=== PATIENT | female | born 1990 | race Caucasian/White ===

== ENCOUNTER 2019-04-19 15:31 | Outpatient (CLI) | payer OTHER, SELFPAY ==
[2019-04-19 15:48] VITALS: BP 128/78; PULSE 90
[2019-04-19 16:01] VITALS: BP 127/78; PULSE 87
[2019-04-19 16:15] LABS: Basophils Percent Auto 0.1 % (0.2-1.2); Eosinophils Absolute Auto 0.1 K/mm3 (0-0.3); Eosinophils Percent Auto 0.8 % (0-4.4); Hematocrit 32.4 % (37.0-47.0); Hemoglobin 10.7 g/dL (12.0-15.0); Immature Granulocyte Absolute 0.06 K/mm3 (0.00-0.031); Immature Granulocyte Percent A 0.6 % (0-0.5); Lymphocytes Absolute Auto 1.51 K/mm3 (0.9-3.2); Lymphocytes Percent Auto 15.9 % (18.3-44.2); Mean Corpuscular Volume 90.8 fl (80-100); Mean Platelet Volume 9.8 fl (7.4-10.4); Monocytes Absolute Auto 0.6 K/mm3 (0.1-0.6); Monocytes Percent Auto 6.4 % (2.6-8.5); Neutrophils Absolute Auto 7.2 K/mm3 (1.3-6.7); Neutrophils Percent Auto 76.2 % (45.5-73.1); Platelet Count Result 234 k/mm3 (150-375); Red Blood Count 3.57 M/mm3 (4.2-5.4); Red Cell Distribution Width 13.3 % (11.5-14.5); White Blood Count 9.5 K/mm3 (4.5-10.0)
[2019-04-19 16:16] VITALS: BP 126/79; PULSE 85; RESP 20; TEMP 36.4
[2019-04-19 16:25] LABS: Add Urine Microscopic? YES; Amorphous Sediment Urine Few; Appearance Urine Clear (Clear); Bacteria Urine Trace /hpf; Bilirubin Urine Negative (Negative); Blood Urine Negative (Negative); Color Urine Yellow (Yellow); Glucose Urine UA Negative (Negative); Ketones Urine Negative (Negative); Leukocyte Esterase Ur Trace LEU/UL (Negative); Mucus Urine Rare /lpf; Nitrate Urine Negative (Negative); Protein Urine Negative (Negative); RBC Urine 0-2 /hpf (0-2); Specific Grav Ur 1.015 (1.001-1.035); Squamous Epithelial Cell Urine Many /hpf (Few); Urobilinogen Urine Negative mg/dL (<2.0); WBC Urine 0-3 /hpf
[2019-04-19 16:27] LABS: Alanine Aminotransferase 8 U/L (4-35); Albumin Level 3.8 g/dL (3.5-5.1); Alkaline Phosphatase 99 U/L (38-126); Aspartate Amino Transferase 13 U/L (14-36); Bilirubin,Total 0.2 mg/dL (0.2-1.3); Blood Urea Nitrogen 8 mg/dL (7-17); Carbon Dioxide 20 mmol/L (22-30); Chloride 104 mmol/L (98-107); Estimated Glomerular Filt Rate > 60; Glucose 90 mg/dL (65-105); Sodium 134 mmol/L (137-145); Uric Acid 2.5 mg/dL (2.5-7.5)
[2019-04-19 16:31] VITALS: BP 127/78; PULSE 89
[2019-04-19 16:31] LABS: Creatinine Urine 59.8 mg/dL; Total Protein Urine Random 12 mg/dL
[2019-04-19 16:40] VITALS: BP 127/78; PULSE 88
== END 2019-04-19 16:58 | disposition home or self-care (01) ==
LOC: ANHOBOP 15:34 → ANHOBPP 15:35
PROVIDERS: PCP Internal Medicine; Visit Provider Obstetrics & Gynecology
DX: O13.9 Gestational [pregnancy-induced] hypertension without significant proteinuria, unspecified trimester (principal)
CPT/HCPCS: 36415; 59025; 80053; 81001; 82570; 84156; 84550; 85025

== ENCOUNTER 2019-04-26 08:45 | Observation (INO) | payer OTHER, SELFPAY ==
[2019-04-26] VITALS (25 sets, daily range): BP systolic 129–136; BP diastolic 83–92; PULSE 82–119; RESP 16; TEMP 37–37.3; O2SAT 97–100; BMI 31.8
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
[2019-04-26 13:21] LABS: Add Urine Microscopic? YES; Appearance Urine Clear (Clear); Bacteria Urine 1+ /hpf; Bilirubin Urine Negative (Negative); Blood Urine Negative (Negative); Color Urine Straw (Yellow); Glucose Urine UA Negative (Negative); Ketones Urine Negative (Negative); Leukocyte Esterase Ur 3+ LEU/UL (NEGATIVE); Mucus Urine Rare /lpf; Nitrate Urine Negative (Negative); Protein Urine Negative (Negative); RBC Urine 0-2 /hpf (0-2); Specific Grav Ur 1.008 (1.001-1.035); Squamous Epithelial Cell Urine Many /hpf (Few); Urobilinogen Urine Negative mg/dL (<2.0)
== END 2019-04-26 13:00 | disposition home or self-care (01) ==
PROVIDERS: Admitting Provider Obstetrics & Gynecology; PCP Internal Medicine; Visit Provider Obstetrics & Gynecology
DX: Z04.1 Encounter for examination and observation following transport accident (principal); O60.03 Preterm labor without delivery, third trimester; Z3A.31 31 weeks gestation of pregnancy
CPT/HCPCS: 76815; 76819; 81001; G0378; G0379

== ENCOUNTER 2019-05-28 13:50 | Outpatient (CLI) | payer OTHER, SELFPAY ==
[2019-05-28] VITALS (7 sets, daily range): BP systolic 128–134; BP diastolic 82–91; PULSE 70–78
[2019-05-28 14:53] LABS: Basophils Percent Auto 0.2 % (0.2-1.2); Eosinophils Percent Auto 0.3 % (0-4.4); Hematocrit 31.9 % (37.0-47.0); Hemoglobin 10.3 g/dL (12.0-15.0); Immature Granulocyte Absolute 0.05 K/mm3 (0.00-0.031); Immature Granulocyte Percent A 0.6 % (0-0.5); Lymphocytes Absolute Auto 1.35 K/mm3 (0.9-3.2); Lymphocytes Percent Auto 15.4 % (18.3-44.2); Mean Corpuscular HGB Conc 32.3 g/dl (32-36); Mean Corpuscular Hemoglobin 29.1 pg (26-34); Mean Corpuscular Volume 90.1 fl (80-100); Mean Platelet Volume 10.5 fl (7.4-10.4); Monocytes Absolute Auto 0.6 K/mm3 (0.1-0.6); Monocytes Percent Auto 6.5 % (2.6-8.5); Neutrophils Absolute Auto 6.8 K/mm3 (1.3-6.7); Platelet Count Result 212 k/mm3 (150-375); Red Blood Count 3.54 M/mm3 (4.2-5.4); Red Cell Distribution Width 13.4 % (11.5-14.5); White Blood Count 8.8 K/mm3 (4.5-10.0)
[2019-05-28 15:05] LABS: Alanine Aminotransferase 8 U/L (4-35); Albumin Level 3.5 g/dL (3.5-5.1); Alkaline Phosphatase 129 U/L (38-126); Aspartate Amino Transferase 14 U/L (14-36); Bilirubin,Total 0.2 mg/dL (0.2-1.3); Blood Urea Nitrogen 8 mg/dL (7-17); Calcium 8.7 mg/dL (8.4-10.2); Carbon Dioxide 19 mmol/L (22-30); Chloride 109 mmol/L (98-107); Creatinine Urine 66.7 mg/dL; Estimated Glomerular Filt Rate > 60; Glucose 78 mg/dL (65-105); Potassium 4.3 mmol/L (3.4-5.0); Sodium 135 mmol/L (137-145); Total Protein Urine Random 16 mg/dL; Uric Acid 3.5 mg/dL (2.5-7.5)
--- NOTE | 2019-05-28 15:06 | PC.NURSE ---
1350-Pt sent over from 's for elevated bp. [facility] orders received.
[2019-05-28 15:07] LABS: Add Urine Microscopic? YES; Appearance Urine Clear (Clear); Bilirubin Urine Negative (Negative); Blood Urine Negative (Negative); Color Urine Straw (Yellow); Glucose Urine UA Negative (Negative); Ketones Urine Negative (Negative); Leukocyte Esterase Ur Trace LEU/UL (NEGATIVE); Mucus Urine Rare /lpf; Nitrate Urine Negative (Negative); Protein Urine Negative (Negative); Specific Grav Ur 1.014 (1.001-1.035); Squamous Epithelial Cell Urine Moderate /hpf (Few); Urobilinogen Urine Negative mg/dL (<2.0); WBC Urine 0-3 /hpf (0-3)
== END 2019-05-28 15:28 ==
LOC: ANHOBPP 14:25 → ANHOBOP 05-29 08:33 → ANHOBPP 12-27 07:35
PROVIDERS: PCP Internal Medicine; Visit Provider Obstetrics & Gynecology
DX: Z34.90 Encounter for supervision of normal pregnancy, unspecified, unspecified trimester (principal); Z3A.00 Weeks of gestation of pregnancy not specified
CPT/HCPCS: 36415; 59025; 80053; 81001; 82570; 84156; 84550; 85025; 87086

== ENCOUNTER 2019-06-04 15:21 | Outpatient (CLI) | payer OTHER, SELFPAY ==
[2019-06-04 15:45] VITALS: BP 138/97; PULSE 89
[2019-06-04 15:54] VITALS: PULSE 87
[2019-06-04 15:58] LABS: Basophils Percent Auto 0.1 % (0.2-1.2); Eosinophils Percent Auto 0.2 % (0-4.4); Hemoglobin 11.1 g/dL (12.0-15.0); Immature Granulocyte Absolute 0.06 K/mm3 (0.00-0.031); Immature Granulocyte Percent A 0.7 % (0-0.5); Lymphocytes Absolute Auto 1.37 K/mm3 (0.9-3.2); Lymphocytes Percent Auto 14.9 % (18.3-44.2); Mean Corpuscular HGB Conc 33.6 g/dl (32-36); Mean Corpuscular Hemoglobin 29.4 pg (26-34); Mean Corpuscular Volume 87.5 fl (80-100); Mean Platelet Volume 10.3 fl (7.4-10.4); Monocytes Absolute Auto 0.6 K/mm3 (0.1-0.6); Monocytes Percent Auto 6.5 % (2.6-8.5); Neutrophils Absolute Auto 7.1 K/mm3 (1.3-6.7); Neutrophils Percent Auto 77.6 % (45.5-73.1); Platelet Count Result 237 k/mm3 (150-375); Red Blood Count 3.77 M/mm3 (4.2-5.4); Red Cell Distribution Width 13.3 % (11.5-14.5); White Blood Count 9.2 K/mm3 (4.5-10.0)
[2019-06-04 16:00] VITALS: BP 135/97; PULSE 87
--- NOTE | 2019-06-04 16:05 | PC.NURSE ---
Dr. Lee called. Stated that he saw lab results and BPs. July D/C home with 24hr urine.
[2019-06-04 16:06] LABS: Alanine Aminotransferase 9 U/L (4-35); Albumin Level 3.7 g/dL (3.5-5.1); Alkaline Phosphatase 141 U/L (38-126); Aspartate Amino Transferase 14 U/L (14-36); Bilirubin,Total 0.4 mg/dL (0.2-1.3); Blood Urea Nitrogen 8 mg/dL (7-17); Calcium 9.3 mg/dL (8.4-10.2); Carbon Dioxide 23 mmol/L (22-30); Chloride 104 mmol/L (98-107); Estimated Glomerular Filt Rate > 60; Glucose 91 mg/dL (65-105); Potassium 4.3 mmol/L (3.4-5.0); Sodium 134 mmol/L (137-145); Uric Acid 3.9 mg/dL (2.5-7.5)
== END 2019-06-04 16:18 | disposition home or self-care (01) ==
LOC: ANHOBOP 15:36 → ANHOBPP 16:08
PROVIDERS: PCP Internal Medicine; Visit Provider Student in an Organized Health Care Education/Training Program
DX: O13.9 Gestational [pregnancy-induced] hypertension without significant proteinuria, unspecified trimester (principal); Z3A.00 Weeks of gestation of pregnancy not specified
CPT/HCPCS: 36415; 59025; 80053; 84550; 85025

== ENCOUNTER 2019-06-12 05:55 | Inpatient (IN) | payer OTHER, SELFPAY ==
[2019-06-02 12:30] VITALS: BMI 33.5
[2019-06-12] VITALS (149 sets, daily range): BP systolic 114–158; BP diastolic 68–107; PULSE 72–119; RESP 22; TEMP 36.4–37.1; O2SAT 97–100; BMI 34.0
--- NOTE | 2019-06-12 06:00 | LDADM ---
This patient, Yanick Dowling, was admitted to Labor/Delivery/Recovery 107 on 06/12/19 at 05:55. Plans for labor, pain management and were discussed with patient. Patient/family oriented to hospital policies and general routines including ID bracelet, bed and alarms, visiting hours, pain management, procedures, bathroom and other care routines, personal items, smoking policy, room service/diet and guest tray routines, security routines, and visiting hours. Patient/Family are encouraged to report perceived risks to care and to ask questions if they do not understand what they are told or what they should do. See OBIX for further documentation.
[2019-06-12 06:44] LABS: Basophils Percent Auto 0.2 % (0.2-1.2); Eosinophils Absolute Auto 0.1 K/mm3 (0-0.3); Eosinophils Percent Auto 0.6 % (0-4.4); Hematocrit 32.2 % (37.0-47.0); Hemoglobin 10.8 g/dL (12.0-15.0); Immature Granulocyte Absolute 0.08 K/mm3 (0.00-0.031); Immature Granulocyte Percent A 0.7 % (0-0.5); Lymphocytes Absolute Auto 1.45 K/mm3 (0.9-3.2); Lymphocytes Percent Auto 13.4 % (18.3-44.2); Mean Corpuscular HGB Conc 33.5 g/dl (32-36); Mean Corpuscular Hemoglobin 29.3 pg (26-34); Mean Corpuscular Volume 87.5 fl (80-100); Mean Platelet Volume 10.1 fl (7.4-10.4); Monocytes Absolute Auto 0.5 K/mm3 (0.1-0.6); Monocytes Percent Auto 4.4 % (2.6-8.5); Neutrophils Absolute Auto 8.7 K/mm3 (1.3-6.7); Neutrophils Percent Auto 80.7 % (45.5-73.1); Platelet Count Result 244 k/mm3 (150-375); Red Blood Count 3.68 M/mm3 (4.2-5.4); Red Cell Distribution Width 13.5 % (11.5-14.5); White Blood Count 10.8 K/mm3 (4.5-10.0)
[2019-06-12] MEDS: LACTATED RINGERS 1,000 ML 125 ML IV CONT ×3 (06:46→17:41)
[2019-06-12] MEDS: OXYTOCIN 30 UNITS/NS 500 ML 30 UNITS/500 ML BAG 6 UNITS IV CONT ×2 (06:46→18:27)
[2019-06-12 07:00] LABS: Alanine Aminotransferase 8 U/L (4-35); Albumin Level 3.5 g/dL (3.5-5.1); Alkaline Phosphatase 126 U/L (38-126); Aspartate Amino Transferase 15 U/L (14-36); Bilirubin,Total < 0.1 mg/dL (0.2-1.3); Blood Urea Nitrogen 9 mg/dL (7-17); Calcium 9.1 mg/dL (8.4-10.2); Carbon Dioxide 21 mmol/L (22-30); Chloride 106 mmol/L (98-107); Estimated CRCL calculation 145 ml/min; Estimated Glomerular Filt Rate > 60; Glucose 107 mg/dL (65-105); Potassium 3.9 mmol/L (3.4-5.0); Sodium 133 mmol/L (137-145); Uric Acid 4.4 mg/dL (2.5-7.5)
--- NOTE | 2019-06-12 08:30 | WPDOBADMIT ---
Obstetrics - Admit Note Admission Note: 28 y/o G1 at 38 3/7 weeks with likely CHTN, now with superimposed gestational HTN. No headaches, no epigastric pain, minimal edema, normal labs. No evidence of superimposed preeclampsia. Here for induction of labor. GBS neg. AVSS NST reactive TOCO: contractions every 2-4 min ABD soft, nontender, gravid, vertex EXT nontender Cervix 3-4/80/-2. AROM with clear fluid. A: IUP at 38 3/7 weeks with gestational HTN. P: I have offered induction of labor. Reviewed risks, benefits, alternatives in detail, and she would like to go ahead with IOL. Oxytocin per protocol.
--- NOTE | 2019-06-12 10:55 | WPDANESEPP ---
Anes - Eval Pre Procedure Procedure: labor epidural Date/Time: 06/12/19 13:10 Surgeon: Naomy Preop Diagnosis: Labor Pain Pre Op Diagnosis: Induction of labor Patient Data Age: 28 Gender: F Height: 5 ft 3 in Weight: 87 kg Last Vital Signs Temp 36.6 C 06/12/19 12:00 Pulse 83 06/12/19 13:01 BP 132/87 06/12/19 13:01 Pulse Ox 100 06/12/19 13:07 Allergies Allergy/AdvReac Type Severity Reaction Status Date / Time Cephalosporins Allergy Mild Other Verified 04/26/19 09:06 cefprozil Allergy Unknown Other Verified 04/26/19 09:06 Home Medications Medication Instructions Recorded Confirmed Type PNV cmb#95-ferrous fumarate-FA 1 tablet PO DAILY 04/26/19 06/12/19 History [] Laboratory Tests 06/12/19 06/12/19 06/12/19 06:32 06:32 06:32 WBC 10.8 K/mm3 H K/mm3 (4.5-10.0) RBC 3.68 M/mm3 L M/mm3 (4.2-5.4) Hgb 10.8 g/dL L g/dL (12.0-15.0) Hct 32.2 % L % (37.0-47.0) MCV 87.5 fl fl (80-100) MCH 29.3 pg pg (26-34) MCHC 33.5 g/dl g/dl (32-36) RDW 13.5 % % (11.5-14.5) Plt Count 244 k/mm3 k/mm3 (150-375) MPV 10.1 fl fl (7.4-10.4) Immature Gran % (Auto) 0.7 % H % (0-0.5) Neut % (Auto) 80.7 % H % (45.5-73.1) Lymph % (Auto) 13.4 % L % (18.3-44.2) Saline % (Auto) 4.4 % % (2.6-8.5) Eos % (Auto) 0.6 % % (0-4.4) Baso % (Auto) 0.2 % % (0.2-1.2) Lymph # (Auto) 1.45 K/mm3 K/mm3 (0.9-3.2) Saline # (Auto) 0.5 K/mm3 K/mm3 (0.1-0.6) Eos # (Auto) 0.1 K/mm3 K/mm3 (0-0.3) Baso # (Auto) 0.0 K/mm3 K/mm3 (0.0-0.1) Abs Immat Gran (auto) 0.08 K/mm3 H K/mm3 (0.00-0.031) Absolute Neuts (auto) 8.7 K/mm3 H K/mm3 (1.3-6.7) Absolute Nucleated RBC 0.0 K/mm3 K/mm3 (0.0-0.012) Nucleated RBC % 0.0 % % (0.0-0.2) Sodium Potassium Chloride Carbon Dioxide BUN Creatinine Estim Creat Clear Calc Estimated GFR Glucose Uric Acid 4.4 mg/dL mg/dL (2.5-7.5) Calcium Total Bilirubin AST ALT Alkaline Phosphatase Total Protein Albumin RPR Pending Blood Type Antibody Screen 06/12/19 06/12/19 06:32 06:32 WBC RBC Hgb Hct MCV MCH MCHC RDW Plt Count MPV Immature Gran % (Auto) Neut % (Auto) Lymph % (Auto) Saline % (Auto) Eos % (Auto) Baso % (Auto) Lymph # (Auto) Saline # (Auto) Eos # (Auto) Baso # (Auto) Abs Immat Gran (auto) Absolute Neuts (auto) Absolute Nucleated RBC Nucleated RBC % Sodium 133 mmol/L L mmol/L (137-145) Potassium 3.9 mmol/L mmol/L (3.4-5.0) Chloride 106 mmol/L mmol/L (98-107) Carbon Dioxide 21 mmol/L L mmol/L (22-30) BUN 9 mg/dL mg/dL (7-17) Creatinine 0.50 mg/dL L mg/dL (0.7-1.0) Estim Creat Clear Calc 145 ml/min ml/min Estimated GFR > 60 (59 - ) Glucose 107 mg/dL H mg/dL (65-105) Uric Acid Calcium 9.1 mg/dL mg/dL (8.4-10.2) Total Bilirubin < 0.1 mg/dL L mg/dL (0.2-1.3) AST 15 U/L U/L (14-36) ALT 8 U/L U/L (4-35) Alkaline Phosphatase 126 U/L U/L (38-126) Total Protein 7.0 g/dL g/dL (6.3-8.2) Albumin 3.5 g/dL g/dL (3.5-5.1) RPR Blood Type B Positive Antibody Screen Negative : gestational age (CARISSA 06/23/19, ) Patient hx anesthesia problems: none Family hx anesthesia problems: none [facility]
--- NOTE | 2019-06-12 11:28 | PM.OBPNLAB ---
Pain Control Date/time seen: 06/12/19 11:28 Comments: Epidural in place. Pain significantly decreased. Pelvic Exam Comments: AVSS 4-5/80/-1. IUPC placed. NST reactive TOCO: contractions every 2-4 min Assessment and Plan Comments: Continue labor.
[2019-06-12 16:06] LABS: Rapid Plasma Reagin Non-Reactive (NonReactive)
--- NOTE | 2019-06-12 18:08 | PM.OBPRVD ---
OB - Delivery Note Procedure Delivery date: 06/12/19 Procedure: Induction of labor with Induction method: AROM and per pitocin protocol Delivery monitor: external FHT, external uterine and internal uterine Route of delivery: Delivery repair: vicryl (3-0 Vicryl) Estimated blood loss (mL): 95 Anesthesia type: Epidural Disposition: PACU Complications: None Narrative: 28 y/o G1 at 38 3/7 weeks gestation who presented to the hospital for induction of labor. Oxytocin was administered intravenously. Amniotomy was performed with return of clear fluid. She received an epidural for pain control. Her labor progressed and her cervix dilated completely. She pushed with good effort. The 's head rotated from ROP to CHARO and delivered to the perineum. A loose nuchal cord was splinted. The body delivered. The cord was reduced. The nose and mouth were bulb suctioned. After a delay, the cord was clamped and cut. The infant was handed off the field. Cord blood was collected. The placenta delivered spontaneously and was grossly normal in appearance. The usual 3 vessel cord was noted. A distal vaginal laceration was sustained. This was reapproximated using 3 0 Vicryl in the usual layered fashion. A right labial laceration was reapproximated using figure of eight sutures of the same material. Excellent hemostasis resulted as did excellent reapproximation of the normal anatomy. Needle and instrument counts were correct. The patient was taken to recovery room in stable condition. The went to the nursery in stable condition. I was present and scrubbed for the entire delivery. [place] Baby Date of : 06/12/19 Time of : 17:50 Weeks of gestation at delivery: 38 Infant gender: Female Weight (pounds): 6 Weight (ounces): 14 presentation: vertex position: Right Occiput Anterior Placenta delivery description: Spontaneous and Normal Configuration cord vessel description: 3 Vessels and Nuchal Cord score one minute: 9 score five minutes: 9
--- NOTE | 2019-06-12 18:12 | PM.OBDSVD ---
DS: Diagnosis Admitting Diagnosis Admitting Diagnosis: IUP at 38 3/7 weeks Gestational hypertension Discharge Diagnosis (1) Gestational hypertension: Code(s): O13.9 - Gestational [-induced] hypertension without significant proteinuria, unspecified trimester Status: Acute OB - DS: Summary OB Procedures : None OB Procedures Intrapartum: Spontaneous Vag Delivery OB Procedures: : None Time Spent with Patient Time attestation: Total time spent providing and/or coordinating discharge services: DS: Data Data Completed and Pending Labs on day of discharge: Labs from last 24 hours 06/12/19 06/12/19 06/12/19 06:32 06:32 06:32 WBC RBC Hgb Hct MCV MCH MCHC RDW Plt Count MPV Immature Gran % (Auto) Neut % (Auto) Lymph % (Auto) [place] % (Auto) Eos % (Auto) Baso % (Auto) Lymph # (Auto) [place] # (Auto) Eos # (Auto) Baso # (Auto) Abs Immat Gran (auto) Absolute Neuts (auto) Absolute Nucleated RBC Nucleated RBC % Sodium 133 L Potassium 3.9 Chloride 106 Carbon Dioxide 21 L BUN 9 Creatinine 0.50 L Estim Creat Clear Calc 145 Estimated GFR > 60 Glucose 107 H Uric Acid Calcium 9.1 Total Bilirubin < 0.1 L AST 15 ALT 8 Alkaline Phosphatase 126 Total Protein 7.0 Albumin 3.5 RPR Non-reactive Blood Type B Positive Antibody Screen Negative 06/12/19 06/12/19 06:32 06:32 WBC 10.8 H RBC 3.68 L Hgb 10.8 L Hct 32.2 L MCV 87.5 MCH 29.3 MCHC 33.5 RDW 13.5 Plt Count 244 MPV 10.1 Immature Gran % (Auto) 0.7 H Neut % (Auto) 80.7 H Lymph % (Auto) 13.4 L [place] % (Auto) 4.4 Eos % (Auto) 0.6 Baso % (Auto) 0.2 Lymph # (Auto) 1.45 [place] # (Auto) 0.5 Eos # (Auto) 0.1 Baso # (Auto) 0.0 Abs Immat Gran (auto) 0.08 H Absolute Neuts (auto) 8.7 H Absolute Nucleated RBC 0.0 Nucleated RBC % 0.0 Sodium Potassium Chloride Carbon Dioxide BUN Creatinine Estim Creat Clear Calc Estimated GFR Glucose Uric Acid 4.4 Calcium Total Bilirubin AST ALT Alkaline Phosphatase Total Protein Albumin RPR Blood Type Antibody Screen Discharge Plan Discharge Attending physician on discharge: Atif Moralez Discharging Clinician: Atif Moralez Patient Disposition: Home, Self-Care Activity: pelvic rest Diet: regular Discharge Instructions: Call or return if temperature above 100.4? F, increased abdominal pain, increased vaginal bleeding or any new problems. Stand Alone Forms: General Discharge Information Follow-up/Referrals: Atif Moralez MD [Physician] - (6 weeks) Discharge Medications: New ibuprofen 600 mg tablet 600 mg PO Q6H PRN (Reason: cramps) Qty: 30 RF: 0 No Action PNV cmb#95-ferrous fumarate-FA [] 28 mg iron- 800 mcg Tablet 1 tablet PO DAILY RF: 0 Date of admission: 06/12/19 05:55 Primary Care Provider: Lanette,Conner Worley Admitting Provider: Atif Moralez Attending physician on admission: Atif Moralez
[2019-06-13] MEDS: IBUPROFEN 600 MG TABLET PO ×3 (05:24→18:57)
[2019-06-13 05:27] LABS: Hemoglobin 9.4 g/dL (12.0-15.0)
[2019-06-13 07:45] VITALS: BP 128/88; PULSE 79; RESP 16; TEMP 37.1; O2SAT 98
[2019-06-13] MEDS: POLYSACCHARIDE IRON COMPLEX 150 MG CAPSULE PO ×2 (10:05→18:56)
[2019-06-13] MEDS: MULTIVIT/MIN/PREN/FOL AC/IRON TABLET 1 TAB PO (10:05)
[2019-06-13] MEDS: DOCUSATE SODIUM 100 MG CAPSULE PO ×2 (10:05→18:56)
[2019-06-13] MEDS: LANOLIN (LANSINOH) 7.5 GM CREAM 1 APPLIC TOPICAL (10:06)
--- NOTE | 2019-06-13 11:47 | PM.OBPNVD ---
OB - PN: Subj Subjective Date/time seen: 06/13/19 11:47 Narrative: Pain OK. Thinks she might want to go home today. OB - PN: Obj Data Labs CBC & Chem 7: 06/13/19 04:02 06/12/19 06:32 Labs: Laboratory Results - last 24 hr 06/12/19 06/13/19 06:32 04:02 Hgb 9.4 L Hct 29.0 L RPR Non-reactive OB - PN A/P Plan Comments: A: PPD#1, doing well. P: Routine care. Home to f/u 6 weeks. BP check in 1-2 days on L&D. Exam Psych: Other: AVSS ABD soft, nontender, fundus firm EXT nontender
--- NOTE | 2019-06-13 14:15 | PC.NURSE ---
Consulted with patient, mother reports pain with feeding. Both nipples are reddened from incorrect latch. Nipple care reviewed. Reviewed feeding cues, frequencies, duration of feedings, feeding elimination flow sheet, and signs of adequate intake. Demonstrated stimulation techniques to wake infant for feeding. Assisted with to breast. Reviewed positioning/alignment in cross cradle, holding breast in U hold and guided asymmetrical latch on. Infant was able to latch correctly. Mother quickly reports she can feel infant is latched more deeply than previous feedings. nursed eagerly, with steady draws and frequent swallowing noted. Reviewed signs of a correct latch, effective nursing and suck swallow ratio. Infant was able to maintain latch without discomfort to mother. Suggested mother stimulate infant to keep awake and nursing effectively for increased intake and assist with maintaining deep latch. Demonstrated how to adjust latch more deeply while feeding. Instructed mother to call out for RN assistance if she is unable to latch infant for feeding or she has discomfort with nursing. Instructed feeding should be initiated three hours from start of last feeding or if feeding cues are noted before. Mother voiced understanding of information shared.
[2019-06-13] MEDS: BENZOCAINE 20% AER SPR (*SP) 56 GM CAN 1 SPRAY TOPICAL (18:56)
[2019-06-13] MEDS: WITCH HAZEL 40 PADS 1 PAD TOPICAL (18:56)
--- NOTE | 2019-06-13 19:40 | PC.NURSE ---
1914 Parents have decided to stay in hospital and not be discharged home tonight for continue breast feeding support and evaluation of baby for possible tongue tie. Discharge cancelled.
[2019-06-13 21:25] VITALS: BP 140/93; PULSE 72; RESP 14; TEMP 36.7; O2SAT 98
[2019-06-14] MEDS: IBUPROFEN 600 MG TABLET PO ×2 (05:11→11:22)
[2019-06-14 07:40] VITALS: BP 140/93; PULSE 67; RESP 18; TEMP 37.3; O2SAT 98
[2019-06-14] MEDS: POLYSACCHARIDE IRON COMPLEX 150 MG CAPSULE PO (09:01)
[2019-06-14] MEDS: DOCUSATE SODIUM 100 MG CAPSULE PO (09:01)
[2019-06-14] MEDS: MULTIVIT/MIN/PREN/FOL AC/IRON TABLET 1 TAB PO (09:01)
--- NOTE | 2019-06-14 12:39 | PM.OBPNVD ---
OB - PN: Subj Subjective Date/time seen: 06/14/19 12:39 Narrative: Pain OK. Wound up staying overnight last night. Ready to go home. OB - PN: Obj Data Labs CBC & Chem 7: 06/13/19 04:02 06/12/19 06:32 OB - PN A/P Plan Comments: A: PPD#2, doing well. P: Home to f/u 6 weeks. Exam Psych: Other: AVSS ABD soft, nontender, fundus firm EXT nontender
[2019-06-15 08:23] VITALS: BP 138/91; PULSE 73; RESP 20; TEMP 36.5
== END 2019-06-14 14:31 | disposition home or self-care (01) | DRG 807 ==
LOC: ANHLDR 18:14 → ANHOB2 20:59
PROVIDERS: Admitting Provider Obstetrics & Gynecology; PCP Internal Medicine; Visit Provider Obstetrics & Gynecology
DX: O13.4 Gestational [pregnancy-induced] hypertension without significant proteinuria, complicating childbirth (principal); Z37.0 Single live birth; Z3A.38 38 weeks gestation of pregnancy; O69.81X0 Labor and delivery complicated by cord around neck, without compression, not applicable or unspecified
CPT/HCPCS: 36415; 80053; 84550; 85014; 85018; 85025; 86592; 86850; 86900; 86901; 88307; A9270; J2590; J2795; J7120

== ENCOUNTER 2021-07-07 09:06 | Outpatient (CLI) | payer OTHER, SELFPAY ==
[2021-07-07 09:33] LABS: Collection Time Urine 24 HOURS
[2021-07-07 09:45] LABS: Patient Weight 160 Lbs
[2021-07-07 11:19] LABS: Total Volume 24 Hour Urine 1300 ml
[2021-07-07 11:25] LABS: Creatinine Urine 94.4 mg/dL; Total Protein Urine 24 Hr 182 mg/24hr (28-141); Total Protein Urine Random 14 mg/dL
== END 2021-07-07 09:07 | disposition home or self-care (01) ==
PROVIDERS: PCP Internal Medicine; Visit Provider Obstetrics & Gynecology
DX: O16.3 Unspecified maternal hypertension, third trimester (principal); Z3A.00 Weeks of gestation of pregnancy not specified
CPT/HCPCS: 81050; 82570; 82575; 84156

== ENCOUNTER 2021-12-31 14:39 | Outpatient (RCR) | payer OTHER, SELFPAY ==
[2021-12-03 11:40] VITALS: BP 113/72; PULSE 88
[2021-12-17 14:31] VITALS: BP 125/81; PULSE 76
[2021-12-24 10:05] LABS: Basophils Percent Auto 0.2 % (0.2-1.2); Eosinophils Percent Auto 0.7 % (0-4.4); Hematocrit 34.7 % (37.0-47.0); Hemoglobin 11.6 g/dL (12.0-15.0); Immature Granulocyte Absolute 0.02 K/mm3 (0.00-0.031); Immature Granulocyte Percent A 0.3 % (0-0.5); Lymphocytes Absolute Auto 1.32 K/mm3 (0.9-3.2); Lymphocytes Percent Auto 22.1 % (18.3-44.2); Mean Corpuscular HGB Conc 33.4 g/dl (32-36); Mean Corpuscular Hemoglobin 30.4 pg (26-34); Mean Corpuscular Volume 91.1 fl (80-100); Monocytes Absolute Auto 0.4 K/mm3 (0.1-0.6); Monocytes Percent Auto 5.9 % (2.6-8.5); Neutrophils Absolute Auto 4.2 K/mm3 (1.3-6.7); Neutrophils Percent Auto 70.8 % (45.5-73.1); Platelet Count Result 188 k/mm3 (150-375); Red Blood Count 3.81 M/mm3 (4.2-5.4); Red Cell Distribution Width 14.2 % (11.5-14.5)
[2021-12-24 10:26] LABS: Appearance Urine Slightly Cloudy (Clear); Bilirubin Urine Negative (Negative); Blood Urine Trace-intact (Negative); Color Urine Yellow (Yellow); Glucose Urine UA Negative (Negative); Ketones Urine Negative (Negative); Leukocyte Esterase Ur Trace LEU/UL (NEGATIVE); Nitrate Urine Negative (Negative); Protein Urine Negative (Negative); Specific Grav Ur 1.015 (1.001-1.035); Urobilinogen Urine 0.2 mg/dL (<2.0)
[2021-12-24 10:29] LABS: Alanine Aminotransferase 13 U/L (6-35); Alkaline Phosphatase 113 U/L (38-126); Anion Gap 10 mmol/L (8-16); Aspartate Amino Transferase 19 U/L (14-36); Bilirubin,Total 0.3 mg/dL (0.2-1.3); Blood Urea Nitrogen 6 mg/dL (7-17); Calcium 8.8 mg/dL (8.4-10.2); Carbon Dioxide 21 mmol/L (22-30); Chloride 105 mmol/L (98-107); Estimated Glomerular Filt Rate > 60; Glucose 84 mg/dL (65-110); Sodium 136 mmol/L (137-145); Uric Acid 4.1 mg/dL (2.5-7.5)
[2021-12-24 10:38] LABS: Bacteria Urine Trace /hpf; Mucus Urine Rare /lpf; RBC Urine 0-2 /hpf (0-2); Squamous Epithelial Cell Urine Moderate /hpf (Few); WBC Urine 0-3 /hpf (0-3)
[2021-12-24 10:40] LABS: Add Urine Microscopic? YES
[2021-12-24 11:00] LABS: Creatinine Urine 59.8 mg/dL; Total Protein Urine Random 10 mg/dL; Ur Ttl Prot Creatinine Ratio 0.17 mg/mg (0-0.20)
[2021-12-24 11:22] VITALS: BP 127/85; PULSE 77
[2021-12-31 15:30] VITALS: BP 132/86; PULSE 79
== END 2022-02-19 07:37 | disposition home or self-care (01) ==
LOC: ANHOBOP 14:39
PROVIDERS: PCP Internal Medicine; Visit Provider Obstetrics & Gynecology
DX: O16.3 Unspecified maternal hypertension, third trimester (principal); Z3A.33 33 weeks gestation of pregnancy; Z3A.34 34 weeks gestation of pregnancy; Z3A.35 35 weeks gestation of pregnancy; Z3A.36 36 weeks gestation of pregnancy; Z3A.37 37 weeks gestation of pregnancy
CPT/HCPCS: 36415; 59025; 80053; 81001; 82570; 84156; 84550; 85025; 87086

== ENCOUNTER 2022-01-05 04:53 | Inpatient (IN) | payer OTHER, SELFPAY ==
[2022-01-05] VITALS (105 sets, daily range): BP systolic 94–163; BP diastolic 56–99; PULSE 61–113; RESP 16–18; TEMP 36.2–37.2; O2SAT 85–100; BMI 33.5
--- NOTE | 2022-01-05 05:33 | LDADM ---
This patient, Yanick Dowling, was admitted to Labor/Delivery/Recovery 103 on 01/05/22 at 04:53. Plans for labor, pain management and were discussed with patient. Patient/family oriented to hospital policies and general routines including ID bracelet, bed and alarms, visiting hours, pain management, procedures, bathroom and other care routines, personal items, smoking policy, room service/diet and guest tray routines, security routines, and visiting hours. Patient/Family are encouraged to report perceived risks to care and to ask questions if they do not understand what they are told or what they should do. See OBIX for further documentation.
[2022-01-05 05:47] LABS: Basophils Percent Auto 0.3 % (0.2-1.2); Eosinophils Absolute Auto 0.1 K/mm3 (0-0.3); Eosinophils Percent Auto 1.4 % (0-4.4); Hematocrit 35.2 % (37.0-47.0); Hemoglobin 11.9 g/dL (12.0-15.0); Immature Granulocyte Absolute 0.06 K/mm3 (0.00-0.031); Lymphocytes Absolute Auto 1.31 K/mm3 (0.9-3.2); Lymphocytes Percent Auto 22.6 % (18.3-44.2); Mean Corpuscular HGB Conc 33.8 g/dl (32-36); Mean Corpuscular Volume 91.7 fl (80-100); Mean Platelet Volume 10.1 fl (7.4-10.4); Monocytes Absolute Auto 0.5 K/mm3 (0.1-0.6); Monocytes Percent Auto 8.1 % (2.6-8.5); Neutrophils Absolute Auto 3.9 K/mm3 (1.3-6.7); Neutrophils Percent Auto 66.6 % (45.5-73.1); Platelet Count Result 196 k/mm3 (150-375); Red Blood Count 3.84 M/mm3 (4.2-5.4); Red Cell Distribution Width 13.7 % (11.5-14.5); White Blood Count 5.8 K/mm3 (4.5-10.0)
[2022-01-05 06:04] LABS: Alanine Aminotransferase 14 U/L (6-35); Albumin Level 3.8 g/dL (3.5-5.1); Alkaline Phosphatase 136 U/L (38-126); Anion Gap 8 mmol/L (8-16); Aspartate Amino Transferase 19 U/L (14-36); Bilirubin,Total 0.2 mg/dL (0.2-1.3); Blood Urea Nitrogen 9 mg/dL (7-17); Calcium 8.6 mg/dL (8.4-10.2); Carbon Dioxide 19 mmol/L (22-30); Chloride 107 mmol/L (98-107); Estimated CRCL calculation 141 ml/min; Estimated Glomerular Filt Rate > 60; Glucose 83 mg/dL (65-110); Sodium 134 mmol/L (137-145)
[2022-01-05 06:05] LABS: Uric Acid 3.7 mg/dL (2.5-7.5)
[2022-01-05] MEDS: OXYTOCIN 30 UNITS/NS 500 ML 30 UNITS/500 ML BAG IV CONT (06:24)
[2022-01-05] MEDS: LACTATED RINGERS 1,000 ML 125 ML IV CONT ×2 (06:24→09:45)
--- NOTE | 2022-01-05 08:51 | WPDOBADMIT ---
Obstetrics - Admit Note Admission Note: record reviewed. Additions to the history and/or subsequent changes in the physical findings follow. 31 y/o at 38 3/7 weeks with CHTN, worsening bp control, on Procardia XL 30 mg daily. GBS neg. Here for scheduled induction of labor. No headache. No midepigastric or RUQ pain. No visual field change. Feeling some contractions. AVSS NST reactive TOCO: contractions every 2-4 min ABD soft, nontender, gravid, vertex EXT nontender Cervix 2-3/80/-2. AROM with clear fluid. Vertex A: IUP at term with favorable cervix, CHTN with worsening bp control. Labs OK. Asymptomatic. No evidence of preeclampsia yet. P: Oxytocin. Anticipate .
[2022-01-05 08:57] LABS: Rapid Plasma Reagin Non-Reactive (NonReactive)
--- NOTE | 2022-01-05 09:37 | WPDANESEPP ---
Anes - Eval Pre Procedure Procedure: labor pain management Date/Time: 01/05/22 09:37 Surgeon: Naomy Preop Diagnosis: pain during labor Pre Op Diagnosis: IOL Patient Data Age: 31 Gender: F Height: 1.6 m Weight: 86 kg Last Vital Signs Temp 97.6 F 01/05/22 09:00 Pulse 88 01/05/22 09:31 BP 134/97 H 01/05/22 09:31 Pulse Ox 100 01/05/22 09:36 O2 Del Method Room Air 01/05/22 05:33 Allergies Allergy/AdvReac Type Severity Reaction Status Date / Time Cephalosporins Allergy Mild Other Verified 04/26/19 09:06 cefprozil Allergy Unknown Other Verified 04/26/19 09:06 nickel Allergy Rash Verified 12/17/21 14:25 Home Medications Medication Instructions Recorded Confirmed Type vit no.95-ferrous 1 tablet PO DAILY 04/26/19 01/05/22 History fumarate 28 mg-folic acid 800 mcg tablet () nifedipine 30 mg tablet,extended 30 mg PO DAILY 12/03/21 12/17/21 History release 24 hr (Procardia XL) Laboratory Tests 01/05/22 01/05/22 01/05/22 05:28 05:28 05:28 WBC 5.8 K/mm3 K/mm3 (4.5-10.0) RBC 3.84 M/mm3 L M/mm3 (4.2-5.4) Hgb 11.9 g/dL L g/dL (12.0-15.0) Hct 35.2 % L % (37.0-47.0) MCV 91.7 fl fl (80-100) MCH 31.0 pg pg (26-34) MCHC 33.8 g/dl g/dl (32-36) RDW 13.7 % % (11.5-14.5) Plt Count 196 k/mm3 k/mm3 (150-375) MPV 10.1 fl fl (7.4-10.4) Immature Gran % (Auto) 1.0 % H % (0-0.5) Neut % (Auto) 66.6 % % (45.5-73.1) Lymph % (Auto) 22.6 % % (18.3-44.2) [place] % (Auto) 8.1 % % (2.6-8.5) Eos % (Auto) 1.4 % % (0-4.4) Baso % (Auto) 0.3 % % (0.2-1.2) Lymph # (Auto) 1.31 K/mm3 K/mm3 (0.9-3.2) [place] # (Auto) 0.5 K/mm3 K/mm3 (0.1-0.6) Eos # (Auto) 0.1 K/mm3 K/mm3 (0-0.3) Baso # (Auto) 0.0 K/mm3 K/mm3 (0.0-0.1) Abs Immat Gran (auto) 0.06 K/mm3 H K/mm3 (0.00-0.031) Absolute Neuts (auto) 3.9 K/mm3 K/mm3 (1.3-6.7) Absolute Nucleated RBC 0.0 K/mm3 K/mm3 (0.0-0.012) Nucleated RBC % 0.0 % % (0.0-0.2) Sodium Potassium Chloride Carbon Dioxide Anion Gap BUN Creatinine Estim Creat Clear Calc Estimated GFR Glucose Uric Acid 3.7 mg/dL mg/dL (2.5-7.5) Calcium Total Bilirubin AST ALT Alkaline Phosphatase Total Protein Albumin RPR Non-reactive (NonReactive) Blood Type Antibody Screen 01/05/22 01/05/22 05:28 05:28 WBC RBC Hgb Hct MCV MCH MCHC RDW Plt Count MPV Immature Gran % (Auto) Neut % (Auto) Lymph % (Auto) [place] % (Auto) Eos % (Auto) Baso % (Auto) Lymph # (Auto) [place] # (Auto) Eos # (Auto) Baso # (Auto) Abs Immat Gran (auto) Absolute Neuts (auto) Absolute Nucleated RBC Nucleated RBC % Sodium 134 mmol/L L mmol/L (137-145) Potassium 4.0 mmol/L mmol/L (3.4-5.0) Chloride 107 mmol/L mmol/L (98-107) Carbon Dioxide 19 mmol/L L mmol/L (22-30) Anion Gap 8 mmol/L mmol/L (8-16) BUN 9 mg/dL mg/dL (7-17) Creatinine 0.50 mg/dL L mg/dL (0.7-1.0) Estim Creat Clear Calc 141 ml/min ml/min Estimated GFR > 60 (59 - ) Glucose 83 mg/dL mg/dL (65-110) Uric Acid Calcium 8.6 mg/dL mg/dL (8.4-10.2) Total Bilirubin 0.2 mg/dL mg/dL (0.2-1.3) AST 19 U/L U/L (14-36) ALT 14 U/L U/L (6-35) Alkaline Phosphatase 136 U/L H U/L (38-126
--- NOTE | 2022-01-05 12:11 | P.PCNOB_ITS ---
OB - Delivery Note Procedure Delivery date: 01/05/22 Procedure: Induction of labor with Events: Chronic Hypertension Induction method: Per Pitocin Protocol Delivery augmentation: Rupture of Membranes Delivery monitor: External FHT and External Uterine Route of delivery: Laceration Description: Vaginal Delivery repair: vicryl (3-0) Specimen: Yes (cord blood) Quantitative Blood Loss (ml): 80 Anesthesia type: Epidural Disposition: PACU Complications: None Narrative: 31 y/o at 38 3/7 weeks gestation who presented to the hospital for induction of labor. Oxytocin was administered intravenously. Amniotomy was performed with return of clear fluid. She received an epidural for pain control. Her labor progressed and her cervix dilated completely. She pushed with good effort and delivered the infant's head to the perineum. A loose nuchal cord was splinted and the body delivered. The cord was reduced and the nose and mouth were bulb suctioned. After a delay, the cord was clamped and cut. The infant was handed off the field. Cord blood was collected. The placenta delivered spontaneously and was grossly normal in appearance. The usual 3 vessel cord was noted. A shallow, distal vaginal laceration was sustained. This was reapproximated using a single figure of eight suture of 3 0 Vicryl. Excellent hemostasis resulted as did excellent reapproximation of the normal anatomy. Needle and instrument counts were correct. The patient was taken to recovery room in stable condition. The infant went to the nursery in stable condition. I was present and scrubbed for the entire delivery. [place] Baby Date of : 01/05/22 Time of : 11:56 Weeks of gestation at delivery: 38 gender: Female Weight (pounds): 6 Weight (ounces): 13 presentation: vertex position: Left Occiput Posterior Placenta delivery description: Spontaneous and Normal Configuration Cord Vessel Description: 3 Vessels, Nuchal Cord and Delayed Cord Clamping score one minute: 9 score five minutes: 9
--- NOTE | 2022-01-05 12:15 | PM.OBDSVD ---
DS: Admitting Diagnosis Discharge Date 01/07/22 Admitting Diagnosis IUP at 38 3/7 weeks [place] DS: Discharge Diagnosis Discharge Diagnosis (1) (normal spontaneous vaginal delivery): Code(s): O80 - Encounter for full-term uncomplicated delivery Status: Acute (2) Chronic hypertension affecting : Code(s): O10.919 - Unspecified pre-existing hypertension complicating , unspecified trimester Status: Acute OB - DS: Summary OB Procedures : PIH Mgmt OB Procedures Intrapartum: Spontaneous Vag Delivery OB Procedures: : None Time Spent with Patient Time attestation: Total time spent providing and/or coordinating discharge services: DS: Data Data Completed and Pending Labs on day of discharge: Labs from last 24 hours 01/05/22 01/05/22 01/05/22 05:28 05:28 05:28 WBC RBC Hgb Hct MCV MCH MCHC RDW Plt Count MPV Immature Gran % (Auto) Neut % (Auto) Lymph % (Auto) Sierra % (Auto) Eos % (Auto) Baso % (Auto) Lymph # (Auto) Sierra # (Auto) Eos # (Auto) Baso # (Auto) Abs Immat Gran (auto) Absolute Neuts (auto) Absolute Nucleated RBC Nucleated RBC % Sodium 134 L Potassium 4.0 Chloride 107 Carbon Dioxide 19 L Anion Gap 8 BUN 9 Creatinine 0.50 L Estim Creat Clear Calc 141 Estimated GFR > 60 Glucose 83 Uric Acid Calcium 8.6 Total Bilirubin 0.2 AST 19 ALT 14 Alkaline Phosphatase 136 H Total Protein 7.0 Albumin 3.8 RPR Non-reactive Blood Type B Positive Antibody Screen Negative 01/05/22 01/05/22 05:28 05:28 WBC 5.8 RBC 3.84 L Hgb 11.9 L Hct 35.2 L MCV 91.7 MCH 31.0 MCHC 33.8 RDW 13.7 Plt Count 196 MPV 10.1 Immature Gran % (Auto) 1.0 H Neut % (Auto) 66.6 Lymph % (Auto) 22.6 Sierra % (Auto) 8.1 Eos % (Auto) 1.4 Baso % (Auto) 0.3 Lymph # (Auto) 1.31 Sierra # (Auto) 0.5 Eos # (Auto) 0.1 Baso # (Auto) 0.0 Abs Immat Gran (auto) 0.06 H Absolute Neuts (auto) 3.9 Absolute Nucleated RBC 0.0 Nucleated RBC % 0.0 Sodium Potassium Chloride Carbon Dioxide Anion Gap BUN Creatinine Estim Creat Clear Calc Estimated GFR Glucose Uric Acid 3.7 Calcium Total Bilirubin AST ALT Alkaline Phosphatase Total Protein Albumin RPR Blood Type Antibody Screen Discharge Plan Discharge Attending physician on discharge: Atif Moralez Discharging Clinician: Atif Moralez Patient Disposition: Home, Self-Care Activity: pelvic rest Diet: regular Discharge Instructions: Call or return if temperature above 100.4? F, increased abdominal pain, increased vaginal bleeding or any new problems. Stand Alone Forms: General Discharge Information Follow-up/Referrals: Atif Moralez MD [Physician] - 6 Weeks Discharge Medications: New ibuprofen 600 mg tablet 600 mg PO Q6H PRN (Reason: cramps) Qty: 30 0RF Continued PNV cmb#95-ferrous fumarate-FA [] 28 mg iron- 800 mcg Tablet 1 tablet PO DAILY Discontinued nifedipine [Procardia XL] 30 mg Tablet Extended Release 24hr 30 mg PO DAILY Date of admission: 01/05/22 04:53 Primary Care Provider: Lanette,Conner Worley Admitting Provider: Atif Moralez Attending physician on admission: Atif Moralez Condition: Stable
[2022-01-05] MEDS: WITCH HAZEL 40 PADS 1 PAD TOPICAL (14:11)
--- NOTE | 2022-01-05 14:40 | OBPPTRN ---
Patient transferred to post room #291 via wheelchair. Support person present. Oriented to unit, room, information board, rooming in, admission packet and security measures. Patient verbalizes understanding.
[2022-01-05] MEDS: DOCUSATE SODIUM 100 MG CAPSULE PO (16:57)
[2022-01-05] MEDS: IBUPROFEN 600 MG TABLET PO (16:57)
[2022-01-06 00:30] VITALS: BP 120/70; PULSE 70; RESP 17; TEMP 36.7
[2022-01-06 04:20] VITALS: BP 132/77; PULSE 65; RESP 16; TEMP 36.6
[2022-01-06] MEDS: IBUPROFEN 600 MG TABLET PO ×2 (04:23→15:44)
[2022-01-06 05:15] LABS: Hematocrit 31.9 % (37.0-47.0); Hemoglobin 10.7 g/dL (12.0-15.0)
[2022-01-06 07:35] VITALS: BP 123/81; PULSE 65; RESP 16; TEMP 36.6; O2SAT 99
--- NOTE | 2022-01-06 07:44 | WPDANLDPN2 ---
Anes-Prog Note L&D Date/Time: 01/06/22 07:44 Comfortable throughout: labor and delivery Neuraxial method: epidural Epidural/Spinal procedure site: tender Neuro status: Neuro function grossly intact. Cardiovascular status: normal Respiratory status: normal Airway patency: baseline Mental status: baseline Post-Op hydration status: normal Vital Signs: Last Vital Signs Temp 36.6 C 01/06/22 04:20 Pulse 65 01/06/22 04:20 Resp 16 01/06/22 04:20 BP 132/77 01/06/22 04:20 Pulse Ox 99 01/05/22 14:50 O2 Del Method Room Air 01/05/22 20:00 Pain score (VAS): 3 I/O: Intake & Output 01/05/22 01/05/22 01/06/22 15:59 23:59 07:59 Intake Total 2300 400 Output Total 80 Balance 2220 400 Post-procedural complaints: none Patient feedback: Patient satisfied with anesthetic care.
--- NOTE | 2022-01-06 08:37 | PM.OBPNVD ---
OB - PN: Subj Subjective Date/time seen: 01/06/22 08:37 Narrative: Pain OK. OB - PN: Obj Data Labs CBC & Chem 7: 01/06/22 04:31 01/05/22 05:28 Labs: Laboratory Results - last 24 hr 01/05/22 01/06/22 05:28 04:31 Hgb 10.7 L Hct 31.9 L RPR Non-reactive OB - PN A/P Plan Comments: A: PPD#1, doing well. P: Routine care. Exam Psych: Other: AVSS ABD soft, nontender, fundus firm EXT nontender
[2022-01-06] MEDS: MULTIVIT/MIN/PREN/FOL AC/IRON TABLET 1 TAB PO (08:46)
[2022-01-06] MEDS: DOCUSATE SODIUM 100 MG CAPSULE PO ×2 (08:46→17:36)
--- NOTE | 2022-01-06 09:19 | PC.NURSE ---
0830 Introductions were made, then consulted with patient to assess needs related to . Mother led the conversation stating she is able to optimally latch infant independently. There is initial soreness that subsides once infant is latched and effectively breastfeed. Resources provided for inpatient and outpatient services using a resource guide and mom/baby guide. Mother voiced understanding of information and will call if there is a request for assistance. Reminded parents to use good handwashing technique to prevent infection. Mother is feeding appropriately for growth of infant and understands stimulating infant to eat if needed. Infant has had appropriate feedings in the last 24 hours meets the outcomes for weight, output and jaundice at this time. Mother states she is confident to continue effectively her infant at home or when to call for assistance and denies any additional assistance or education at this time. Reinforced understanding of milk production, transition of milk, signs of adequate intake, prevention/relief of engorgement, responsive after visualizing feeding cues, the different methods of stimulating infant to breastfeed 2-3 hours after the start of the last feeding, community resources, medication information reviewed per [employer] and when to call a provider using the resource of the mom and baby guide/[facility] website. Mother voiced understanding of the education shared. Reported to the primary RN.
[2022-01-06 20:00] VITALS: BP 118/79; PULSE 66; RESP 16; TEMP 36.5
[2022-01-07 08:15] VITALS: BP 142/88; PULSE 79; RESP 16; TEMP 36.5; O2SAT 100
[2022-01-07] MEDS: MULTIVIT/MIN/PREN/FOL AC/IRON TABLET 1 TAB PO (09:13)
[2022-01-07] MEDS: DOCUSATE SODIUM 100 MG CAPSULE PO (09:13)
[2022-01-07] MEDS: IBUPROFEN 600 MG TABLET PO (09:13)
[2022-01-07 10:55] VITALS: BP 136/86
--- NOTE | 2022-01-07 11:36 | PC.NURSE ---
[id number] Mother led the conversation with her experience and plan to feed her so far and her ability to independently latch optimally with initial soreness, then it subsides. Reminded parents to use good handwashing technique to prevent infection. Mother is feeding appropriately for growth of infant and understands stimulating infant to eat if needed. Infant has had appropriate feedings in the last 24 hours meets the outcomes for weight, output and jaundice at this time. Mother states she is confident to continue effectively her infant at home or when to call for assistance and denies any additional assistance or education at this time. Reinforced understanding of milk production, transition of milk, signs of adequate intake, prevention/relief of engorgement, responsive after visualizing feeding cues, the different methods of stimulating infant to breastfeed 2-3 hours after the start of the last feeding, community resources, medication information reviewed per [employer] and when to call a provider using the resource of the mom and baby guide/[facility] website. Mother voiced understanding of the education shared. Reported to the primary RN.
--- NOTE | 2022-01-07 11:50 | PM.OBPNVD ---
OB - PN: Subj Subjective Date/time seen: 01/07/22 11:50 Narrative: Pain OK. Would like to go home. OB - PN: Obj Data Labs CBC & Chem 7: 01/06/22 04:31 01/05/22 05:28 OB - PN A/P Plan Comments: A: PPD#2, doing well. P: Home to f/u 6 weeks. Exam Psych: Other: AVSS ABD soft, nontender, fundus firm EXT nontender
[2022-01-08 09:44] VITALS: BP 136/95; PULSE 80; RESP 20; TEMP 36.6; O2SAT 100
== END 2022-01-07 14:20 | disposition home or self-care (01) | DRG 807 ==
LOC: ANHLDR 12:16 → ANHOB2 15:00
PROVIDERS: Admitting Provider Obstetrics & Gynecology; PCP Internal Medicine; Visit Provider Obstetrics & Gynecology
DX: O10.92 Unspecified pre-existing hypertension complicating childbirth (principal); Z37.0 Single live birth; O70.0 First degree perineal laceration during delivery; O69.81X0 Labor and delivery complicated by cord around neck, without compression, not applicable or unspecified; Z3A.38 38 weeks gestation of pregnancy
CPT/HCPCS: 36415; 80053; 84550; 85014; 85018; 85025; 86592; 86850; 86900; 86901; A9270; J2590; J2795; J7120

== ENCOUNTER 2022-08-13 10:35 | Emergency (ER) | payer OTHER, SELFPAY ==
[2022-08-13 10:46] VITALS: BP 152/105; PULSE 88; RESP 16; TEMP 36.6; O2SAT 99
--- NOTE | 2022-08-13 11:33 | ED.URI ---
HPI - URI/Sore Throat General Chief Complaint: Upper Respiratory Infection Stated Complaint: Sinus Congestion Time Seen by Provider: 08/13/22 11:20 Source: patient, RN notes reviewed and old records reviewed Mode of arrival: ambulatory Limitations: no limitations History of Present Illness HPI Narrative: 32-year-old female presents to the [facility] with sinus congestion for 9 days worse over the last couple of days. Lost her smell. States that she took an at home COVID test which she reports is negative. Patient is currently breast feeding MD elicited complaint: sore throat, rhinorrhea and nasal congestion Related Data Home Medications Medication Instructions Recorded Confirmed escitalopram oxalate 10 mg tablet 10 mg PO DIRECTED 08/13/22 08/13/22 Allergies Allergy/AdvReac Type Severity Reaction Status Date / Time Cephalosporins Allergy Mild Other Verified 08/13/22 10:55 cefprozil Allergy Unknown Other Verified 08/13/22 10:55 nickel Allergy Rash Verified 08/13/22 10:55 Review of Systems Review of Systems: All systems reviewed & are unremarkable except as noted in HPI and below Constitutional: Constitutional: Reports no additional constitutional complaints Eyes: Eyes: Reports no additional eye complaints ENT: Reports as per HPI, Reports nasal discharge, Reports sinus pain and Reports sinus pressure Cardiovascular: Cardiovascular: Reports no additional cardiovascular complaints, Denies chest pain and Denies dyspnea Respiratory: Respiratory: Reports no additional respiratory complaints, Denies chest congestion, Denies cough and Denies dyspnea Gastrointestinal: Gastrointestinal: Reports no additional gastrointestinal complaints, Denies abdominal pain, Denies nausea and Denies vomiting Musculoskeletal: Musculoskeletal: Reports no additional musculoskeletal complaints Integumentary/Breasts: Skin/Breast: Reports system reviewed and no additional complaints, except as docu Neurologic: Reports system reviewed and no additional complaints, except as documented Psychiatric: Psychiatric: Reports no additional psychiatric complaints Allergic/Immunologic: Allergic/Immunologic: Reports no additional allergic/immunologic complaints [facility] Past Medical History Medical History (Updated 08/13/22 @ 11:44 by Kathleen Banerjee APRN) Lymphoma remission since 2019 Patellar instability of both knees Family History Family History Grandparent Family history of malignant neoplasm of breast Family history of lung cancer Hypertension Father Diabetes mellitus Hypertension Mother Diabetes mellitus Hypertension Social History Social History Smoking status: Never smoker Second hand tobacco smoke exposure: No Alcohol intake: current Substance use: never Gender identity (if verbalized by the patient): Female Spiritual care concerns: No Comments At the time of my signature, I reviewed and agree with the nursing past medical, surgical, social, and family history. There is no relevant family history pertinent to the patient complaint. Exam Const: General: cooperative, healthy appearing, comfortable, no acute distress, well developed, alert and well nourished Nutritional Appearance: well nourished Orientation/consciousness: patient oriented x3 Limitations: no limitations HENMT: Head: normal to inspection Ears: hearing grossly normal bilaterally and external ears normal Face/Nose/Sinus: Normal external nose present, Normal nares present, Abnormal mucous membranes and turbinates present boggy bilateral; not erythematous, Nasal discharge present and normal facial exam Face and sinus: normal facial exam, sinuses nontender and face symmetric Mouth: Yes Normal oral and palatal mucosa present, Yes lip normal and Yes moist mucous membranes Throat: posterior oropharynx normal, uvula midline and postn
--- NOTE | 2022-08-14 11:17 | PC.NURSE ---
pt calls facility, informs rn she is and her baby is allergic to amoxicillin, and her pharmacy recommends she should not take antibiotic/augmentin prescribed yesterday. requests new med. FACT[employer] reviewed chart, prescribed azithromycin - 500 mg day one, 250mg days 2-5. pt aware.
== END 2022-08-13 11:20 | disposition home or self-care (01) ==
LOC: EXPBETH 10:37
PROVIDERS: Emergency Provider Nurse Practitioner; PCP Internal Medicine
DX: J01.40 Acute pansinusitis, unspecified (principal); Z85.72 Personal history of non-Hodgkin lymphomas
CPT/HCPCS: 99213; G0463

== ENCOUNTER → 2023-04-22 12:45 | Outpatient (CLI) | payer OTHER, SELFPAY ==
--- NOTE | ~2023-04-22 | US_ITS ---
EXAMINATION: US pelvic complete w TV DATE: 04/22/2023 13:55 INDICATION: Right adnexal pain TECHNIQUE: Multiple transabdominal and endovaginal sonographic images of the pelvis were obtained. COMPARISON: None. FINDINGS: The uterus measures 9.1 x 3.8 x 7.2 cm. The endometrial complex measures 4 mm. The right ov arturo measures 4.5 x 2.2 x 3.3 cm. The left ovary measures 3.5 x 2.3 x 3.3 cm. There is normal vascular flow in the ovaries. There is no free fluid in the pelvis. IMPRESSION: 1. No sonographic correlate for the patient's symptoms. Reviewed, dictated and finalized at location F. CHECKER
== END ==
PROVIDERS: PCP Obstetrics & Gynecology; Visit Provider Obstetrics & Gynecology
DX: E27.8 Other specified disorders of adrenal gland (principal)
CPT/HCPCS: 76830; 76856

== ENCOUNTER 2023-10-04 16:20 | Emergency (ER) | payer OTHER, SELFPAY ==
[2023-10-04 16:27] VITALS: BP 135/88; PULSE 92; RESP 16; TEMP 36.3; O2SAT 100
--- NOTE | 2023-10-04 17:37 | ED.GENADULT ---
HPI - General Adult General Chief complaint: Upper Respiratory Infection Stated complaint: thoat Source: patient Mode of arrival: ambulatory Limitations: no limitations History of Present Illness HPI narrative: Patient presents for evaluation of sore throat for last 2 days. She indicates her children attend daycare and are sick frequently. She denies any fever, chills, nausea, vomiting, cough, shortness of breath. She has not smoke. She has not taken medication to assist with her symptoms. Related Data Home Medications Medication Instructions Recorded Confirmed escitalopram oxalate 10 mg tablet 10 mg PO DIRECTED 08/13/22 08/13/22 Allergies Allergy/AdvReac Type Severity Reaction Status Date / Time Cephalosporins Allergy Mild Other Verified 10/04/23 16:25 cefprozil Allergy Unknown Other Verified 10/04/23 16:25 nickel Allergy Rash Verified 10/04/23 16:25 Review of Systems Review of Systems: CONSTITUTIONAL: Denies fever, chills, or sweats. EYES: Denies visual changes, redness, or discharge. ENT: Reports sore throat Denies rhinorrhea, congestion, or otalgia. CARDIOVASCULAR: Denies chest pain, palpitations, or edema. RESPIRATORY: Denies cough or dyspnea. GASTROINTESTINAL: Denies abdominal pain, nausea, vomiting, or diarrhea. GENITOURINARY: Denies dysuria or hematuria. SKIN: Denies rash or itching. MUSCULOSKELETAL: Denies back pain, joint pain, or myalgia. NEUROLOGIC: Denies headache, numbness, dizziness, or weakness. PSYCHIATRIC: Denies anxiety or depression. [facility] Past Medical History Medical History Lymphoma remission since 2019 Patellar instability of both knees Surgical History Surgical History No pertinent past surgical history Family History Family History Grandparent Family history of malignant neoplasm of breast Family history of lung cancer Hypertension Father Diabetes mellitus Hypertension Mother Diabetes mellitus Hypertension Social History Social History Smoking status: Never smoker Second hand tobacco smoke exposure: No Alcohol intake: current Substance use: never Gender identity (if verbalized by the patient): Female Spiritual care concerns: No Exam Narrative: GENERAL: Well-appearing, well-nourished, and in no acute distress. HEAD: Normocephalic, atraumatic. EYES: PERRLA and EOMI. ENT: Nares clear, no rhinorrhea or epistaxis. Mucous membranes moist. Oropharynx without tonsillar hypertrophy exudate or other lesions. There is posterior pharyngeal erythema. Bilateral TMs pearly dinero nonbulging NECK: Supple. No adenopathy or masses. No carotid bruits or JVD CHEST: Clear to auscultation. No respiratory distress. No wheezes rales or rhonchi HEART: Regular rate and rhythm. No murmur heard. Normal peripheral pulses. ABDOMEN: Soft, nontender, nondistended, normal active bowel sounds. EXTREMITIES: Normal range of motion. No edema. SKIN: Warm, dry, no rash. NEURO: No focal deficits. Alert and oriented x3. PSYCH: Normal mood and affect. Course Course Emergency Course: This is a 33-year-old female who presented for evaluation of sore throat. Rapid strep positive. She has tolerated amoxicillin in the past despite cephalosporin allergies. Will discharge with amoxicillin. Increase hydration. [id number] agents for symptom management. Follow up with primary provider. Go to the ER for worsening symptoms. Patient in agreement with plan of care. Level of Care: Express Care Visit Vital Signs Vital signs: Vital Signs Temperature 36.3 C L 10/04/23 16:27 Pulse Rate 92 10/04/23 16:27 Respiratory Rate 16 10/04/23 16:27 Blood Pressure 135/88 10/04/23 16:27 Pulse Oximetry 100 10/04/23 16:27 Oxygen D
== END 2023-10-04 17:37 | disposition home or self-care (01) ==
PROVIDERS: Emergency Provider Nurse Practitioner; PCP Internal Medicine
DX: J02.0 Streptococcal pharyngitis (principal); Z85.72 Personal history of non-Hodgkin lymphomas
CPT/HCPCS: 87880; 99213; G0463

== ENCOUNTER 2025-02-19 12:54 | Outpatient (RCR) | payer OTHER, SELFPAY ==
[2025-01-23 10:22] VITALS: BP 120/77; PULSE 85
--- NOTE | 2025-01-30 16:35 | PC.NURSE ---
1600-Called Dr. Moralez and left message. 1634-Called Dr. Moralez with no answer. 1635-Dr. Moralez returned call. Informed of decelerations noted on tracing, but otherwise reactive. Contractions noted that stopped after voiding. Orders received for BPP.
[2025-01-30 17:09] VITALS: BP 129/72; PULSE 78
--- NOTE | 2025-01-30 18:10 | PC.NURSE ---
Called Dr. Moralez with BP results of 08/26. July D/C home.
[2025-02-06 09:26] VITALS: BP 143/85; PULSE 91
[2025-02-13 14:08] VITALS: BP 131/81; PULSE 81
--- NOTE | ~2025-02-19 | US_ITS ---
EXAM(S): Ultrasound OB BPP with nonstress testing HISTORY: Variable decelerations COMPARISON: None. FINDINGS: The exam is performed too late in the gestation to optimally evaluate the anatomy. Number: Single. Heart rate: 133 bpm. presentation: cephalic. anatomy: No anatomic abnormalities are seen on the static images submitted. Amniotic fluid index: 19.48 cm. Placenta: Fundal. There is a three-vessel cord. There is a four-chamber heart. The stomach and the bladder are present. BPP: Breathing Movements: 0 Movements: 2 Tone: 2 MICHAEL: 2 Biophysical profile is 6 out of 8. IMPRESSION: Single, live intrauterine with biophysical profile of 6 out of 8, as described. Reviewed, dictated and finalized at location A. ETOLOGIST APPRENTICE
[2025-02-19 13:31] VITALS: BP 124/76; PULSE 93
== END 2025-03-09 11:43 | disposition other institution (70) ==
LOC: ANHOBOP 12:54
PROVIDERS: PCP Internal Medicine; Visit Provider Obstetrics & Gynecology
DX: O10.913 Unspecified pre-existing hypertension complicating pregnancy, third trimester (principal); Z3A.32 32 weeks gestation of pregnancy
CPT/HCPCS: 59025; 76819

== ENCOUNTER 2025-02-26 06:05 | Inpatient (IN) | payer OTHER, SELFPAY ==
[2025-02-26] VITALS (144 sets, daily range): BP systolic 111–154; BP diastolic 62–103; PULSE 63–105; RESP 16; TEMP 36.5–37.1; O2SAT 89–100; BMI 34.9
[2025-02-26 06:53] LABS: Hematocrit 32.7 % (37.0-47.0); Hemoglobin 11.1 g/dL (12.0-15.0); Immature Granulocyte Percent A 0.4 % (0-0.5); Lymphocytes Absolute Auto 1.68 K/mm3 (0.9-3.2); Mean Corpuscular HGB Conc 33.9 g/dl (32-36); Mean Corpuscular Hemoglobin 30.7 pg (26-34); Mean Corpuscular Volume 90.3 fl (80-100); Nucleated Red Blood Cells Absolute Auto 0.000 K/mm3 (0.0-0.012); Nucleated Red Blood Cells Perc 0.0 % (0.0-0.2); Platelet Count Result 174 k/mm3 (150-375); Red Blood Count 3.62 M/mm3 (4.2-5.4); White Blood Count 6.7 K/mm3 (4.5-10.0)
--- NOTE | 2025-02-26 06:59 | LDADM ---
This patient, Yanick Dowling, was admitted to Labor/Delivery/Recovery 109 on 02/26/25 at 06:05. Plans for labor, pain management and were discussed with patient. Patient/family oriented to hospital policies and general routines including ID bracelet, bed and alarms, visiting hours, pain management, procedures, bathroom and other care routines, personal items, smoking policy, room service/diet and guest tray routines, security routines, and visiting hours. Patient/Family are encouraged to report perceived risks to care and to ask questions if they do not understand what they are told or what they should do. See OBIX for further documentation.
[2025-02-26 07:15] LABS: Alanine Aminotransferase 14 U/L (6-35); Albumin Level 3.5 g/dL (3.5-5.1); Alkaline Phosphatase 106 U/L (38-126); Anion Gap 5 mmol/L (4-12); Aspartate Amino Transferase 19 U/L (14-36); Bilirubin,Total 0.4 mg/dL (0.2-1.3); Blood Urea Nitrogen 8 mg/dL (7-17); Calcium 8.5 mg/dL (8.4-10.2); Carbon Dioxide 18 mmol/L (22-30); Chloride 109 mmol/L (98-107); Estimated CRCL calculation 154 ml/min; Estimated Glomerular Filt Rate > 60; Glucose 106 mg/dL (65-110); Potassium 3.8 mmol/L (3.4-5.0); Sodium 132 mmol/L (137-145); Total Protein 6.7 g/dL (6.3-8.2); Uric Acid 3.5 mg/dL (2.5-7.5)
[2025-02-26] MEDS: OXYTOCIN 30 UNITS/NS 500 ML 30 UNITS/500 ML BAG IV CONT (07:20)
[2025-02-26] MEDS: LACTATED RINGERS 1,000 ML 125 ML IV CONT (07:24)
[2025-02-26 08:27] LABS: Syphilis IgG/IgM Antibody Non-Reactive (Nonreactive)
--- NOTE | 2025-02-26 09:32 | PM.IMHP2 ---
H&P: HPI History of Present Illness Date/Time: 02/26/25 09:32 Chief Complaint: Here for induction of labor. Narrative: 34 y/o at 37 4/7 weeks here for induction of labor secondary to CHTN, maintained on two antihypertensives. She has no headaches, upper abdominal pain or visual field change. US on 02/18 showed EFW 3478g (7#11oz). GBS neg. 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 Surgical History Surgical History Hx of lymph node biopsy Hx laparoscopic cholecystectomy Family History Family History Grandparent Family history of malignant neoplasm of breast Family history of lung cancer Hypertension Father Diabetes mellitus Hypertension Mother Diabetes mellitus Hypertension Social History Social History Smoking status: Never smoker Second hand tobacco smoke exposure: No Alcohol intake: former Substance use: never Lack of Transportation: No Lack of Food: Never True Current Housing: I Have Housing Concerned About Future Housing: No Difficulty Paying Gas/Electric Bills: No Difficulty Paying for Meds: No Currently Unemployed: No Education: Master's Degree or Higher Difficulty w/ Childcare or Family Care: No Gender identity (if verbalized by the patient): Female Spiritual care concerns: No Meds Home Medications and Allergies Home Medications ?Medication ?Instructions ?Recorded ?Confirmed ?Type aspirin 81 mg tablet,delayed 81 mg PO HS 09/25/24 02/26/25 History release vitamins 30 30 mg iron-10 1 cap PO HS 09/25/24 02/26/25 History mg iron-folic acid 1 mg-om3 capsule nifedipine 30 mg tablet,extended 30 mg PO HS 01/23/25 02/26/25 History release 24 hr labetalol 200 mg tablet See Rx Instructions .Route 02/01/25 02/26/25 Rx .COMPLEX #60 tabs Allergies Allergy/AdvReac Type Severity Reaction Status Date / Time Cephalosporins Allergy Mild Other Verified 02/26/25 07:07 cefprozil Allergy Unknown Other Verified 02/26/25 07:07 nickel Allergy Rash Verified 02/26/25 07:07 Vital Signs Vital Signs - 24 hr 02/26/25 06:43 02/26/25 06:44 02/26/25 06:57 Temperature Pulse Rate 92 Blood Pressure 133/88 Pulse Oximetry 98 Oxygen Delivery Room Air 02/26/25 07:50 02/26/25 07:51 02/26/25 09:12 Temperature 98.3 F Pulse Rate 79 Blood Pressure 138/85 Pulse Oximetry 97 99 Oxygen Delivery 02/26/25 09:13 02/26/25 09:27 02/26/25 09:29 Temperature 98.4 F Pulse Rate 68 74 Blood Pressure 143/78 H 136/80 Pulse Oximetry 98 Oxygen Delivery 02/26/25 09:32 Temperature Pulse Rate Blood Pressure Pulse Oximetry 100 Oxygen Delivery Exam Const: Other: Well-developed, well-nourished female in no acute distress. GI: Other: ABD: Soft, nontender, nondistended, gravid. No guarding or rebound tenderness. No hepatosplenomegaly. NST reactive. TOCO: irregular contractions. : Other: Cervix: 2-3/50/-2. AROM with clear fluid. Vertex. Extrem: Other: Extremities: nontender with no edema Psych: Other: Mental status grossly normal, with normal mood and affect. Results Labs Labs: Short CBC 02/26/25 Range/Units 06:25 WBC 6.7 (4.5-10.0) K/mm3 Hgb 11.1 L (12.0-15.0) g/dL Hct 32.7 L (37.0-47.0) % Plt Count 174 (150-375) k/mm3 BMP 02/26/25 06:25 Sodium 132 L Potassium 3.8 Chloride 109 H Carbon Dioxide 18 L BUN 8 Creatinine 0.45 L Glucose 106 Calcium 8.5 Liver Function 02/26/25 Range/Units 06:25 Total Bilirubin 0.4 (0.2-1.3) mg/dL AST 19 (14-36) U/L ALT 14 (6-35) U/L Alkaline Phosphatase 106 (38-126) U/L Albumin 3.5 (3.5-5.1) g/dL Assessment and Plan Assessment and plan (1) Chronic hypertension affecting : Code(s): O10.919 - Unspecified pre-existing hypertension complicating , unspecified trimester Status: Acute Assessment and Plan: A: IUP at 37 4/7 weeks with CHTN P: Have offered induction of labor. We discussed risks, benefits and alternatives in detail, and she agrees. Plan oxytocin. Will keep an eye on bp.
--- NOTE | 2025-02-26 10:14 | P.PNAN_ITS ---
Anes - Initial Pre Proc Eval Procedure: labor epidural Date/Time: 02/26/25 10:14 Surgeon: Atif Moralez MD Pre Op Diagnosis: labor pain Pre Op Diagnosis: Induction of Labor Patient Data Age: 34 Gender: F Height: 1.6 m Weight: 89.5 kg Last Vital Signs Temp 36.7 C 02/26/25 10:01 Pulse 66 02/26/25 10:00 BP 128/78 02/26/25 10:00 Pulse Ox 99 02/26/25 10:12 O2 Del Method Room Air 02/26/25 06:57 Allergies Allergy/AdvReac Type Severity Reaction Status Date / Time Cephalosporins Allergy Mild Other Verified 02/26/25 07:07 cefprozil Allergy Unknown Other Verified 02/26/25 07:07 nickel Allergy Rash Verified 02/26/25 07:07 Home Medications ?Medication ?Instructions ?Recorded ?Confirmed ?Type aspirin 81 mg tablet,delayed 81 mg PO HS 09/25/24 1212/13 History release vitamins 30 30 mg iron-10 1 cap PO HS 5 02/26/25 History mg iron-folic acid 1 mg-om3 capsule nifedipine 30 mg tablet,extended 30 mg PO HS 01/23/25 02/26/25 History release 24 hr labetalol 200 mg tablet See Rx Instructions .Route 1 04/03/24 02/26/25 Rx .COMPLEX #60 tabs Laboratory Tests 02/26/25 02/26/25 06:25 06:25 WBC 6.7 K/mm3 (4.5-10.0) RBC 3.62 L M/mm3 (4.2-5.4) Hgb 11.1 L g/dL (12.0-15.0) Hct 32.7 L % (37.0-47.0) MCV 90.3 fl (80-100) MCH 30.7 pg (26-34) MCHC 33.9 g/dl (32-36) RDW 13.7 % (11.5-14.5) Plt Count 174 k/mm3 (150-375) MPV 10.2 fl (7.4-10.4) Immature Gran % (Auto) 0.4 % (0-0.5) Neut % (Auto) 67.7 % (45.5-73.1) Lymph % (Auto) 25.2 % (18.3-44.2) [place] % (Auto) 6.0 % (2.6-8.5) Eos % (Auto) 0.6 % (0-4.4) Baso % (Auto) 0.1 L % (0.2-1.2) Lymph # (Auto) 1.68 K/mm3 (0.9-3.2) [place] # (Auto) 0.4 K/mm3 (0.1-0.6) Eos # (Auto) 0.0 K/mm3 (0-0.3) Baso # (Auto) 0.0 K/mm3 (0.0-0.1) Abs Immat Gran (auto) 0.03 K/mm3 (0.00-0.031) Absolute Neuts (auto) 4.5 K/mm3 (1.3-6.7) Absolute Nucleated RBC 0.000 K/mm3 (0.0-0.012) Nucleated RBC % 0.0 % (0.0-0.2) Sodium 132 L mmol/L (137-145) Potassium 3.8 mmol/L (3.4-5.0) Chloride 109 H mmol/L (98-107) Carbon Dioxide 18 L mmol/L (22-30) Anion Gap 5 mmol/L (4-12) BUN 8 mg/dL (7-17) Creatinine 0.45 L mg/dL (0.7-1.0) Estim Creat Clear Calc 154 ml/min Estimated GFR > 60 (59 - ) Glucose 106 mg/dL (65-110) Uric Acid Cancelled 3.5 mg/dL (2.5-7.5) Calcium 8.5 mg/dL (8.4-10.2) Total Bilirubin 0.4 mg/dL (0.2-1.3) AST 19 U/L (14-36) ALT 14 U/L (6-35) Alkaline Phosphatase 106 U/L (38-126) Total Protein 6.7 g/dL (6.3-8.2) Albumin 3.5 g/dL (3.5-5.1) Syphilis IgG/IgM Ab Non-reactive (Nonreactive) Blood Type B Positive Antibody Screen Negative Patient hx anesthesia problems: none Family hx anesthesia problems: none Results Review: All pre-operative results and documents have been reviewed as part of the pre- operative evaluation. 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 Lymphoma remission since 2019 Surgical History Surgical History Hx of lymph node biopsy Hx laparoscopic cholecystectomy Family History Family History Grandparent Family history of malignant neoplasm of breast Family history of lung cancer Hypertension Father Diabetes mellitus Hypertension Mother Diabetes mellitus Hypertension Social History Social History Smoking status: Never smoker Second hand tobacco smoke exposure: No Alcohol intake: former Substance use: never Lack of Transportation: No Lack of Food: Never True Current Housing: I Have Housing Concerned About Future Housing: No Difficulty Paying Gas/Electric Bills: No Difficulty Paying for Meds: No Currently Unemployed: No Education: Master's Degree or Higher Difficulty w/ Childcare or Family Care: No Gender identity (if verbalized by the patient): Female Spiritual care concerns: No Anes - Eval Final PreProcedure Day of Procedure 02/26/25 10:14 Patient weight: obese ASA classification: III Anesthetic plan: proceed Anesthesia type and monitoring: regional epidural and standard monitoring Results Review: All pre-operative results and documents have been reviewed as part of the pre- operative evaluation. Informed Consent: The patient's anesthetic plan and its attendant risks and benefits were discussed with the patient/family/POA. Questions were solicited and answers provided to the satisfaction of the patient/family/POA.
[2025-02-26 13:37] LABS: Total Protein Urine Random 11 mg/dL; Ur Ttl Prot Creatinine Ratio 0.67 mg/mg (0-0.20)
[2025-02-26] MEDS: OXYTOCIN 30 UNITS/NS 500 ML 30 UNITS/500 ML BAG 999 UNITS IV CONT (15:29)
[2025-02-26] MEDS: OXYTOCIN 30 UNITS/NS 500 ML 30 UNITS/500 ML BAG 125 UNITS IV CONT (16:00)
[2025-02-26 16:04] LABS: Add Urine Microscopic? NO; Appearance Urine Clear (Clear); Glucose Urine UA Negative (Negative); Leukocyte Esterase Ur Negative LEU/UL (Negative); Nitrate Urine Negative (Negative); Specific Grav Ur 1.007 (1.001-1.035)
--- NOTE | 2025-02-26 16:41 | PM.OBPRVD ---
OB - Vaginal Delivery Note Procedure Delivery date: 02/26/25 Events: Chronic Hypertension Induction method: Per Pitocin Protocol Delivery augmentation: Rupture of Membranes Delivery monitor: External FHT, External Uterine and Internal Uterine Route of delivery: Laceration Description: Vaginal Delivery repair: vicryl (3-0 Vicryl) Specimen: Yes (Cord blood, placenta) Quantitative Blood Loss (ml): 220 Anesthesia type: Epidural Disposition: PACU Narrative: 34 y/o at 37 4/7 weeks gestation who presented to the hospital for induction of labor. Oxytocin was administered intravenously. Amniotomy was performed with return of clear fluid. She received an epidural for pain control. Her labor progressed and her cervix dilated completely. She pushed with good effort and delivered the infant's head to the perineum, followed by the body. The nose and mouth were bulb suctioned. After a delay, the cord was clamped and cut. The was handed off the field. Cord blood was collected. The placenta delivered spontaneously and was grossly normal in appearance. The usual 3 vessel cord was noted. A shallow, distal vaginal laceration was sustained. This was reapproximated using 3 0 Vicryl in a single interrupted figure of eight suture. Excellent hemostasis resulted as did excellent reapproximation of the normal anatomy. Needle and instrument counts were correct. The patient was taken to recovery room in stable condition. The infant went to the nursery in stable condition. I was present and scrubbed for the entire delivery. Baby Date of : 02/26/25 Time of : 15:29 Gestational Age by Date: 37 gender: Male presentation: vertex position: Left Occiput Anterior Placenta delivery description: Spontaneous and Normal Configuration Cord Vessel Description: 3 Vessels and Delayed Cord Clamping score one minute: 8 score five minutes: 9
--- NOTE | 2025-02-26 16:43 | P.DS_ITS ---
DS: Admitting Diagnosis Discharge Date 02/28/25 Admitting Diagnosis IUP at 37 4/7 weeks Chronic HTN DS: Discharge Diagnosis Discharge Diagnosis (1) (normal spontaneous vaginal delivery): Code(s): O80 - Encounter for full-term uncomplicated delivery Status: Acute (2) Chronic hypertension affecting : Code(s): O10.919 - Unspecified pre-existing hypertension complicating , unspecified trimester Status: Acute OB - DS: Summary OB Procedures : NST and PIH Mgmt OB Procedures Intrapartum: Spontaneous Vag Delivery OB Procedures: : None Peripartum Data Laceration Description: Vaginal Time Spent with Patient Time attestation: Total time spent providing and/or coordinating discharge services: DS: Data Data Completed and Pending Labs on day of discharge: Labs from last 24 hours 02/26/25 02/26/25 02/26/25 13:01 06:25 06:25 WBC 6.7 RBC 3.62 L Hgb 11.1 L Hct 32.7 L MCV 90.3 MCH 30.7 MCHC 33.9 RDW 13.7 Plt Count 174 MPV 10.2 Immature Gran % (Auto) 0.4 Neut % (Auto) 67.7 Lymph % (Auto) 25.2 [place] % (Auto) 6.0 Eos % (Auto) 0.6 Baso % (Auto) 0.1 L Lymph # (Auto) 1.68 [place] # (Auto) 0.4 Eos # (Auto) 0.0 Baso # (Auto) 0.0 Abs Immat Gran (auto) 0.03 Absolute Neuts (auto) 4.5 Absolute Nucleated RBC 0.000 Nucleated RBC % 0.0 Sodium 132 L Potassium 3.8 Chloride 109 H Carbon Dioxide 18 L Anion Gap 5 BUN 8 Creatinine 0.45 L Estim Creat Clear Calc 154 Estimated GFR > 60 Glucose 106 Uric Acid 3.5 Cancelled Calcium 8.5 Total Bilirubin 0.4 AST 19 ALT 14 Alkaline Phosphatase 106 Total Protein 6.7 Albumin 3.5 Urine Color Yellow Urine Appearance Clear Urine pH 8.5 Ur Specific [place] 1.007 Urine Protein Negative Urine Glucose (UA) Negative Urine Ketones 1+ H Ur Blood (Man) Negative Urine Nitrate Negative Urine Bilirubin Negative Urine Urobilinogen 0.2 Leukocyte Esterase Rfl Negative U Random Total Protein 11 Urine Creatinine 16.4 Protein/Creat Ratio 2 0.67 H Syphilis IgG/IgM Ab Non-reactive Blood Type B Positive Antibody Screen Negative Discharge Plan Discharge Attending physician on discharge: Atif Moralez Discharging Clinician: Atif Moralez Patient Disposition: Home Activity: pelvic rest Diet: regular Discharge Instructions: Call or return if temperature above 100.4? F, increased abdominal pain, increased vaginal bleeding or any new problems. Patient Language: [place] Stand Alone Forms: General Discharge Information Follow-up/Referrals: Atif Moralez MD [Physician, [employer]] - 6 Weeks Discharge Medications: New ibuprofen 600 mg tablet 600 mg PO Q6H PRN (Reason: cramps) Qty: 30 0RF Continued PNV [id number] 30 mg iron-10 mg iron-1 mg capsule 1 cap PO HS nifedipine 30 mg tablet extended release 24hr 30 mg PO HS Discontinued aspirin 81 mg tablet,delayed release (DR/EC) 81 mg PO HS labetalol 200 mg tablet See Rx Instructions .ROUTE .COMPLEX Qty: 60 1RF Dose Instruction: TAKE 1 TABLET BY MOUTH EVERY 12 HOURS Rx Instructions: TAKE 1 TABLET BY MOUTH EVERY 12 HOURS Date of admission: 02/26/25 06:05 Primary Care Provider: Lanette,Conner Worley Admitting Provider: Atif Moralez Attending physician on admission: Atif Moralez Condition: Stable
--- NOTE | 2025-02-26 18:21 | OBPPTRN ---
Patient transferred to post room #290 via wheelchair. Support person present. Oriented to unit, room, information board, rooming in, admission packet and security measures. Patient verbalizes understanding.
[2025-02-26] MEDS: ACETAMINOPHEN 325 MG TABLET 650 MG PO (18:49)
[2025-02-27] MEDS: ACETAMINOPHEN 325 MG TABLET 650 MG PO (05:41)
[2025-02-27] MEDS: IBUPROFEN 600 MG TABLET PO ×3 (06:25→23:46)
[2025-02-27 06:54] LABS: Hematocrit 33.7 % (37.0-47.0); Hemoglobin 10.9 g/dL (12.0-15.0)
[2025-02-27 08:10] VITALS: BP 122/81; PULSE 88; RESP 16; TEMP 36.9; O2SAT 99
[2025-02-27] MEDS: DOCUSATE SODIUM 100 MG CAPSULE PO (09:14)
[2025-02-27] MEDS: MULTIVIT/MIN/PREN/FOL AC/IRON TABLET 1 TAB PO (09:14)
--- NOTE | 2025-02-27 10:14 | P.PNOB_ITS ---
OB - PN: Subj Subjective Date/time seen: 02/27/25 10:14 Narrative: Pain OK. Would like circumcision for son. OB - PN: Obj Data Labs 02/27/25 06:35 02/26/25 06:25 Labs: Laboratory Results - last 24 hr 02/26/25 02/27/25 13:01 06:35 Hgb 10.9 L Hct 33.7 L Urine Color Yellow Urine Appearance Clear Urine pH 8.5 Ur Specific [place] 1.007 Urine Protein Negative Urine Glucose (UA) Negative Urine Ketones 1+ H Ur Blood (Man) Negative Urine Nitrate Negative Urine Bilirubin Negative Urine Urobilinogen 0.2 Leukocyte Esterase Rfl Negative U Random Total Protein 11 Urine Creatinine 16.4 Protein/Creat Ratio 2 0.67 H OB - PN A/P Plan day: 1 Comments: A: PPD#1, doing well. P: Routine care. Reviewed circ. Exam 2 Psych: Other: AVSS ABD soft, nontender, fundus firm EXT nontender
--- NOTE | 2025-02-27 11:35 | PC.NURSE ---
Introductions were made, then consulted with patient to assess needs related to . Discussed with mother her?plans to feed?her and the?experience so far. Resources provided for inpatient and outpatient services with the feeding sheet, mom/baby guide and name written on the communication board. Breast pump provided due to mother's request, she wishes to only pump and bottle feed. Instructions given on cleaning, care, usage, that there should be no pain, pumping schedule for milk production, collection, and storage of human milk. Patient was assessed for correct placement, flange size, to pump for comfort and nipple stretching/stimulation for adequate milk production every 3 hours (8 times in 24 hours) 1-2 times at night. Parents are encouraged to record the pumping schedule on the feeding sheet.?Mother voiced understanding of the education shared along with mom/baby guide and the pump measurement, flange fit handout for additional resource information. Reported to the Primary RN.
[2025-02-27 12:26] VITALS: BP 144/85; PULSE 98; RESP 16; TEMP 37.2; O2SAT 99
--- NOTE | 2025-02-27 13:20 | S_PTH ---
PATIENT: Yanick Dowling LOC: [id number] U#:[id number] AGE/SX: 34/F ROOM: 290 RE02/26/[address]: Atif Moralez MD : 1990 BED: 00 DIS: 02/28/2025 SPEC #: [id number] RECD: 02/27/25 13:23 STATUS: CARMEN REAnu #: [id number] MICHELLE: 02/27/25 13:[address]: Atif Moralez DEPT: [facility] Surgical RECD BY: Shira Carter MLT, ([facility]) ENTERED: 02/27/25 13:23 SP TYPE: Surgical OTHR DR: Conner Gama, Tissues: A - Placenta Procedures: Hematoxylin and Eosin Stain Gross and Microscopic Level 5
[2025-02-27 20:00] VITALS: BP 141/92; PULSE 93; RESP 16; TEMP 36.7; O2SAT 99
[2025-02-28] MEDS: IBUPROFEN 600 MG TABLET PO (07:46)
[2025-02-28] MEDS: ACETAMINOPHEN 325 MG TABLET 650 MG PO (07:46)
[2025-02-28 08:55] VITALS: BP 133/80; PULSE 73; RESP 16; TEMP 36.5; O2SAT 98
--- NOTE | 2025-02-28 09:28 | PC.NURSE ---
Consulted with mother concerning needs and she shared her ability to independently use the breast pump without pain, she plans on only pumping and bottle feeding. Mother is feeding appropriately for growth of infant and understands stimulating to eat if needed. has had appropriate feedings in the last 24 hours meets the outcomes for weight, output, blood sugar and jaundice at this time. Reinforced understanding of milk production, transition of milk, signs of adequate intake, transition of stool, prevention/relief of engorgement, plugged ducts, mastitis, responsive watching for feeding cues, the different methods of stimulating infant to breastfeed 1-3 hours after the start of the last feeding, community resources, and when to call a provider using the resource of the feeding sheet along with the mom and baby guide. Mother voiced understanding of the information shared, is confident to continue effectively feed her infant at home, when to call for assistance, denies any additional assistance or education at this time. Reported to the Primary RN.
[2025-02-28] MEDS: DOCUSATE SODIUM 100 MG CAPSULE PO (09:36)
[2025-02-28] MEDS: MULTIVIT/MIN/PREN/FOL AC/IRON TABLET 1 TAB PO (09:36)
--- NOTE | 2025-02-28 09:39 | P.PNOB_ITS ---
OB - PN: Subj Subjective Date/time seen: 02/28/25 09:39 Narrative: Pain OK. Would like to go home. OB - PN: Obj Data Labs 02/27/25 06:35 02/26/25 06:25 OB - PN A/P Plan day: 2 Comments: A: PPD#2, doing well. P: Home to f/u 6 weeks. Exam 2 Psych: Other: AVSS ABD soft, nontender, fundus firm EXT nontender
[2025-03-01 09:37] VITALS: BP 131/84; PULSE 82; RESP 18; TEMP 36.6; O2SAT 100
== END 2025-02-28 14:57 | disposition home or self-care (01) | DRG 806 ==
LOC: ANHLDR 16:44 → ANHOB2 18:23
PROVIDERS: Admitting Provider Obstetrics & Gynecology; PCP Internal Medicine; Visit Provider Obstetrics & Gynecology
DX: O10.92 Unspecified pre-existing hypertension complicating childbirth (principal); O71.4 Obstetric high vaginal laceration alone; Z37.0 Single live birth; Z3A.37 37 weeks gestation of pregnancy; O69.89X0 Labor and delivery complicated by other cord complications, not applicable or unspecified
CPT/HCPCS: 36415; 80053; 81003; 82570; 84156; 84550; 85014; 85018; 85025; 86593; 86850; 86900; 86901; 88307; A9270; J2590; J2795; J7120